=== PATIENT | female | born 1990 | race African-American/Black ===

== ENCOUNTER 2020-12-16 17:02 | Emergency (ER) | payer SELFPAY ==
[~2020-12-16] VITALS: Ht 162.6 cm; Wt 54.4 kg
--- NOTE | 2020-12-16 19:45 | NUR ---
PATIENT BIBSELF C/O PANIC ATTACK, STARTED TODAY. PATIENT IS A/O X 4, RR EVEN AND UNLABORED, NO SOB NOTED. PATIENT CONNECTED TO SUPERVISOR [employer]CREEN [employer] AND POX.
[2020-12-16] MEDS ORDERED: LORAZEPAM INJ 2 MG/ML VIAL ONE (19:57)
[2020-12-16] MEDS ORDERED: IV NS 0.9% 1,000 ML BAG IV ONE (20:00)
[2020-12-16] MEDS ORDERED: LORAZEPAM INJ 2 MG/ML VIAL IV ONE (20:00)
[2020-12-16 20:15] LABS: CALCIUM, SERUM 9.4 mg/dL (8.5-10.1); CREATININE 0.8 mg/dL (0.6-1.3); POTASSIUM 3.4 mmol/L (3.5-5.1)
[2020-12-16 20:21] LABS: ALBUMIN 4.4 g/dL (3.4-5.0); BILIRUBIN,DIRECT 0.3 mg/dL (0.0-0.2); BILIRUBIN,TOTAL 1.2 mg/dL (0.2-1.0); TOTAL PROTEIN, SERUM 7.9 g/dL (6.4-8.2)
[2020-12-16 20:57] LABS: BASOPHILS % (AUTO) 0.5 % (0.0-2.0); EOSINOPHILS % (AUTO) 0.3 % (0.0-6.0); HEMATOCRIT 42 % (33-45); LYMPHOCYTES % (AUTO) 17.8 % (20.0-44.0); MEAN CORPUSCULAR HGB CONC 34 g/dl (31.0-36.0); MEAN CORPUSCULAR VOLUME 93 fL (82-100); MONOCYTES # (AUTO) 0.4 K/uL (0.1-1.30); MONOCYTES % (AUTO) 6.4 % (2.0-12.0); NEUTROPHILS # (AUTO) 4.3 K/uL (1.8-8.9); PLATELET COUNT (AUTO) 196 K/uL (150-450); RED BLOOD CELL COUNT(AUTO) 4.49 MIL/uL (4.0-5.2); WHITE BLOOD COUNT (AUTO) 5.8 K/uL (4.3-11.0)
[2020-12-16 21:13] VITALS: BP 122/77
--- NOTE | 2020-12-16 21:13 | NUR ---
Patient discharged to home in stable condition. Written and verbal after care instructions given. Patient verbalizes understanding of instruction.
== END 2020-12-16 21:13 | disposition home or self-care (01) ==
LOC: ER 17:08
DX: F41.0 Panic disorder [episodic paroxysmal anxiety] (principal); R42 Dizziness and giddiness
CPT/HCPCS: 36415; 80048; 80076; 85025; 93005; 96361; 96374; 99284; J2060; J7030